=== PATIENT | male | born 1970 | race Caucasian/White ===

== ENCOUNTER 2019-02-03 09:35 | Emergency (ER) | payer OTHER ==
[2019-02-03 09:42] VITALS: BP 148/89; PULSE 65; TEMP 97.9; BMI 29.7
[2019-02-03] MEDS ORDERED: LIDOCAINE 5% TOPICAL PATCH TP ONE (11:16)
[2019-02-03] MEDS ORDERED: KETOROLAC TROMETHAMINE 60 MG/2 ML VIAL IM ONE (11:16)
[2019-02-03] MEDS ORDERED: LIDOCAINE 5% TOPICAL PATCH ONE (11:18)
[2019-02-03] MEDS ORDERED: KETOROLAC TROMETHAMINE 60 MG/2 ML VIAL ONE (11:18)
--- NOTE | 2019-02-03 11:34 | PDOC ---
History of Present Illness - General Chief Complaint: Back Pain Stated Complaint: LOWER BACK PAIN Time Seen by Provider: 02/03/19 10:38 History Source: Patient Exam Limitations: No Limitations Past History - Travel Traveled outside of the country in the last 30 days: No Close contact w/someone who was outside of country & ill: No - Past Medical History Allergies/Adverse Reactions: Allergies Allergy/AdvReac Type Severity Reaction Status Date / Time Penicillins Allergy Verified 02/03/19 09:39 Home Medications: Ambulatory Orders Levofloxacin [Levaquin] 750 mg PO DAILY #5 tablet 11/24/15 metroNIDAZOLE [Flagyl -] 500 mg PO TID #17 tablet 11/24/15 Cyclobenzaprine HCl [Flexeril -] 10 mg PO HS #10 tablet 02/03/19 Ibuprofen 800 mg PO TID #30 tablet 02/03/19 Anemia: No Asthma: No Cancer: No Cardiac Disorders: No CVA: No COPD: No CHF: No Dementia: No Diabetes: No GI Disorders: No Disorders: No HTN: No Hypercholesterolemia: No Liver Disease: No Seizures: No Thyroid Disease: No - Surgical History Abdominal Surgery: No Appendectomy: Yes Cardiac Surgery: No Cholecystectomy: No Lung Surgery: No Neurologic Surgery: No Orthopedic Surgery: No - Immunization History Immunization Up to Date: No - Suicide/Smoking/Psychosocial Hx Smoking History: Never smoked Have you smoked in the past 12 months: No Number of Cigarettes Smoked Daily: 0 Hx Alcohol Use: No Drug/Substance Use Hx: No Substance Use Type: None Hx Substance Use Treatment: No Review of Systems - Review of Systems Able to Perform ROS?: Yes Is the patient limited Jamaican proficient: No *Physical Exam - Vital Signs Last Vital Signs Temp Pulse Resp BP Pulse Ox 97.9 F 65 18 148/89 100 02/03/19 09:40 02/03/19 09:40 02/03/19 09:40 02/03/19 09:40 02/03/19 09:40 ED Treatment Course - Medications Given in the ED: ED Medications Discontinued Medications Generic Name Dose Route Start Last Admin Trade Name Freq PRN Reason Stop Dose Admin Ketorolac Tromethamine 60 mg 02/03/19 11:16 02/03/19 11:22 Toradol Injection - IM 02/03/19 11:17 60 mg ONCE ONE Administration Lidocaine 1 patch 02/03/19 11:16 02/03/19 11:22 Lidoderm Patch - TP 02/03/19 11:17 1 patch ONCE ONE Administration *DC/Admit/Observation/Transfer Diagnosis at time of Disposition: Low back pain Qualifiers: Chronicity: acute Back pain laterality: right Sciatica presence: without sciatica Qualified Code(s): M54.5 - Low back pain - Discharge Dispostion Disposition: HOME Condition at time of disposition: Stable Decision to Admit order: No - Referrals Referrals: Hakeem Crook MD [Primary Care Provider] - - Patient Instructions Printed Discharge Instructions: DI for Low Back Pain Additional Instructions: You have low back pain due to a muscle spasm. Please take ibuprofen 800 mg ( starting tonight) 3 times a day not to exceed 3000 mg a day. You were also prescribed Flexeril. Please take this medication every 8 hours for the first day. Then take the medication before you go to bed. Do not drive after taking this medication as it may make you sleepy. You may use warm compresses on your back to help with her symptoms. Please follow-up with your primary care doctor. If your symptoms do not resolve in 3-5 days, follow-up with orthopedics. A referral has been provided for you. Return to the emergency department if you have worsening back pain, bladder or bowel incontinence, numbness and tingling in her legs, changes in the way you walk, or any new or worsening symptoms. Tiene dolor lumbar debido a un espasmo muscular. [place] ibuprofeno 800 mg (a partir de esta noche) 3 veces al da sin exceder los 3000 mg al da. Tambin le recetaron Flexeril. [place] sebastian medicamento cada 8 horas ismael el primer da. Luego tome el medicamento antes de acostarse. No conduzca despus de gabriel sebastian medicamento, ya que puede causarle sueo. Puede usar compresas tibias en la espalda para ayudarla con desiree sntomas. Flip un seguimiento con lemus mdico de atencin primaria. Si desiree sntomas no se resuelven en 3-5 tse, flip un seguimiento con ortopedia. Se le mckeon proporcionado stephany referencia. Regrese al departamento de emergencias si tiene dolor de espalda que empeora, incontinencia de vejiga o intestino, entumecimiento y hormigueo en las piernas, cambios en la forma de caminar o cualquier sntoma nuevo o que empeore. - Post Discharge Activity Forms/Work/School Notes: Back to Work
[2019-02-03] MEDS ORDERED: LIDOCAINE PATCH REMOVAL MC SCH (22:00)
== END 2019-02-03 11:40 | disposition home or self-care (01) ==
LOC: JERFT 09:35
PROC: 3E0233Z Introduction of Anti-inflammatory into Muscle, Percutaneous Approach (ICD-10-PCS; principal; 2019-02-03)
DX: M54.5 Low back pain (principal)
CPT/HCPCS: 96372; 99281-25

== ENCOUNTER 2022-03-15 16:14 | Emergency (ER) | payer OTHER ==
[2022-03-15] MEDS ORDERED: IBUPROFEN 400 MG TABLET (FP) PO ONE ×2 (16:31→17:02)
[2022-03-15 16:38] VITALS: BP 144/84; PULSE 72; RESP 20; TEMP 98.6; BMI 31.3
== END 2022-03-15 18:08 | disposition home or self-care (01) ==
LOC: FER 16:14
DX: S52.022A Displaced fracture of olecranon process without intraarticular extension of left ulna, initial encounter for closed fracture (principal); W10.8XXA Fall (on) (from) other stairs and steps, initial encounter
CPT/HCPCS: 73070-TC-LT-FY; 99283-25

== ENCOUNTER 2023-07-31 08:51 | Emergency (ER) | payer OTHER ==
[2023-07-31 09:01] VITALS: BP 155/98; PULSE 71; RESP 18; TEMP 98.7; BMI 32.5
[2023-07-31] MEDS ORDERED: METOCLOPRAMIDE HCL INJECTION 10 MG/2 ML VIAL IVPUSH ONE (09:19)
[2023-07-31] MEDS ORDERED: ACETAMINOPHEN 1000 MG/100 ML BAG IVPB ONE (09:19)
[2023-07-31] MEDS ORDERED: LACTATED RINGERS SOLUTION 1000 ML INFUS.BAG IV ONE (09:19)
[2023-07-31] MEDS ORDERED: ACETAMINOPHEN INJECTION 100 ML IVPB ONE (09:29)
[2023-07-31] MEDS ORDERED: METOCLOPRAMIDE HCL INJECTION 10 MG/2 ML VIAL ONE (09:29)
== END 2023-07-31 10:53 | disposition home or self-care (01) ==
LOC: FER 08:51
PROC: 3E033NZ Introduction of Analgesics, Hypnotics, Sedatives into Peripheral Vein, Percutaneous Approach (ICD-10-PCS; principal; 2023-07-31)
PROC: 3E033GC Introduction of Other Therapeutic Substance into Peripheral Vein, Percutaneous Approach (ICD-10-PCS; 2023-07-31)
DX: R51.9 Headache, unspecified (principal)
CPT/HCPCS: 70450-TC; 99284-25; J0131

== ENCOUNTER 2023-08-29 04:27 | Day surgery (SDC) | payer OTHER ==
[2023-08-26 12:13] VITALS: BMI 32.9
[2023-08-29 11:44] VITALS: TEMP 97.8
[2023-08-29 12:12] VITALS: BP 118/73; PULSE 76; RESP 16
== END 2023-08-29 12:23 | disposition home or self-care (01) ==
LOC: JASU-ENDO 04:27
PROVIDERS: ATTEND Internal Medicine Gastroenterology
PROC: 0DB68ZX Excision of Stomach, Via Natural or Artificial Opening Endoscopic, Diagnostic (ICD-10-PCS; 2023-08-29)
PROC: 0DB78ZX Excision of Stomach, Pylorus, Via Natural or Artificial Opening Endoscopic, Diagnostic (ICD-10-PCS; 2023-08-29)
PROC: 0DJD8ZZ Inspection of Lower Intestinal Tract, Via Natural or Artificial Opening Endoscopic (ICD-10-PCS; principal; 2023-08-29 11:00)
DX: Z12.11 Encounter for screening for malignant neoplasm of colon (principal); K57.30 Diverticulosis of large intestine without perforation or abscess without bleeding; K29.50 Unspecified chronic gastritis without bleeding
CPT/HCPCS: 88305-TC; 88342-TC